=== PATIENT | male | born 1955 | race Caucasian/White ===

== ENCOUNTER 2019-01-15 11:19 | Inpatient (IN) ==
[2019-01-15] MEDS ORDERED: ACETAMINOPHEN 325 MG TABLET PO PRN (13:38)
[2019-01-15] MEDS ORDERED: PROMETHAZINE 25 MG/1 ML VIAL IM PRN (13:38)
[2019-01-15] MEDS ORDERED: ONDANSETRON 4 MG/2 ML VIAL IV PRN (13:38)
[2019-01-15 14:27] LABS: Basophils % 0.5 % (0.0-0.8); Hematocrit 38.5 VOL% (42.0-52.0); Immature Granulocytes % 0.2 %; Immature Granulocytes Absolute 0.02 #; Lymphocytes # 1.5 10*3/uL (1.4-4.0); Lymphocytes % 18.3 % (21.2-54.2); Mean Corpuscular HGB Conc 33.8 GM/DL (32-36); Mean Corpuscular Volume 92.8 FL (87-102); Mean Platelet Volume 9.5 FL (9.6-12.0); Monocytes % 7.4 % (1.7-12.7); Neutrophils % 73.6 % (38.7-73.9); Platelet Count 225 T/CUMM (130-400); Red Blood Count 4.15 MC/CUMM (3.8-5.5); Red Cell Distribution Width 12.1 % (9.3-17.3); White Blood Count 8.4 T/CUMM (4-12)
[2019-01-15] MEDS: PANTOPRAZOLE 40 MG TABLET PO SCH (14:31)
[2019-01-15] MEDS: HEPARIN 5,000 UNIT/1 ML VIAL SUBCUT SCH ×2 (14:31→20:55)
[2019-01-15 15:02] LABS: Albumin 3.7 G/DL (3.4-5.0); Bilirubin,Total 0.4 MG/DL (0.2-1.0); Calcium 8.5 MG/DL (8.5-10.1); Thyroid Stimulating Hormone 2.33 uIU/ml (0.358-3.74); Total Protein 7.9 G/DL (6.4-8.3)
[2019-01-15 15:45] LABS: Albumin 3.8 G/DL (3.4-5.0); Bilirubin,Total 0.4 MG/DL (0.2-1.0); Calcium 8.4 MG/DL (8.5-10.1); Osmolality,Calculated 294.8 MOS/KG (273-304); Total Protein 7.6 G/DL (6.4-8.3)
[2019-01-15 22:37] LABS: Apearance,Urine CLEAR (Clear); Bilirubin,Urine Negative (Negative); Blood, Urine Small mg/dL (Negative); Glucose,Urine (UA) Negative (Negative); Ketones,Urine Negative (Negative); Nitrite,Urine Negative (Negative); Protein,Urine Negative; RBC,Urine 1 /HPF (0-4); Urine Color Straw (Yellow); Urine Specific Gravity 1.006 (1.001-1.035); Urine Urobilinogen < 2.0 EU/DL (0.2-1.0); WBC,Urine 1 /HPF (0-6)
[2019-01-16] MEDS ORDERED: cefTRIAXone 1,000 MG in SYRINGE 1 EACH IV ONE ×2 (00:01→09:15)
[2019-01-16 05:56] LABS: Basophils % 0.5 % (0.0-0.8); Hematocrit 37.5 VOL% (42.0-52.0); Hemoglobin 12.4 GM/DL (14.0-18.0); Immature Granulocytes % 0.4 %; Immature Granulocytes Absolute 0.03 #; Lymphocytes # 1.4 10*3/uL (1.4-4.0); Lymphocytes % 18.5 % (21.2-54.2); Mean Corpuscular HGB Conc 33.1 GM/DL (32-36); Mean Corpuscular Volume 92.4 FL (87-102); Mean Platelet Volume 9.5 FL (9.6-12.0); Monocytes % 8.5 % (1.7-12.7); Neutrophils % 72.1 % (38.7-73.9); Platelet Count 195 T/CUMM (130-400); Red Blood Count 4.06 MC/CUMM (3.8-5.5); Red Cell Distribution Width 11.9 % (9.3-17.3); White Blood Count 7.5 T/CUMM (4-12)
[2019-01-16 06:06] LABS: Calcium 8.5 MG/DL (8.5-10.1)
[2019-01-16 06:28] LABS: Risk Ratio 5.08; VLDL CHOLESTEROL 33.6 MG/DL
[2019-01-16] MEDS ORDERED: SODIUM PHOSPHATE ENEMA 133 ML BOTTLE RECTAL ONE (06:55)
[2019-01-16] MEDS: SODIUM CHLORIDE 0.9% 1,000 ML IV SCH ×4 (07:08→22:47)
[2019-01-16 08:58] LABS: INR 0.9; PT Patient Result 10.2 SECS
[2019-01-16] MEDS: METOPROLOL TARTRATE 100 MG TABLET PO SCH ×2 (09:03→20:11)
[2019-01-16] MEDS ORDERED: SEVOFLURANE 1 UNIT/15 MINUTE INH ONE (13:17)
[2019-01-16] MEDS ORDERED: PROPOFOL 200 MG/20 ML VIAL IV ONE (13:17)
[2019-01-16] MEDS ORDERED: fentaNYL 100 MCG/2 ML VIAL ONE (13:17)
[2019-01-16] MEDS ORDERED: ONDANSETRON 4 MG/2 ML VIAL ONE (13:18)
[2019-01-16] MEDS ORDERED: MIDAZOLAM 2 MG/2 ML VIAL ONE (13:18)
[2019-01-16] MEDS ORDERED: hydrALAZINE 20 MG/1 ML VIAL IV ONE ×2 (13:20→13:55)
[2019-01-16] MEDS ORDERED: hydrALAZINE 20 MG/1 ML VIAL ONE (13:20)
[2019-01-16] MEDS ORDERED: hydrALAZINE 20 MG/1 ML VIAL IV STA (13:36)
[2019-01-16] MEDS: HEPARIN 5,000 UNIT/1 ML VIAL SUBCUT SCH ×2 (15:00→20:09)
[2019-01-16] MEDS: PANTOPRAZOLE 40 MG TABLET PO SCH (15:41)
[2019-01-16] MEDS: MORPHINE 4 MG/1 ML VIAL IV PRN (20:06)
[2019-01-17] MEDS: MORPHINE 4 MG/1 ML VIAL IV PRN ×3 (03:26→21:00)
[2019-01-17] MEDS: SODIUM CHLORIDE 0.9% 1,000 ML IV SCH ×4 (03:31→21:03)
[2019-01-17 06:43] LABS: Basophils % 0.3 % (0.0-0.8); Hematocrit 36.5 VOL% (42.0-52.0); Hemoglobin 12.2 GM/DL (14.0-18.0); Immature Granulocytes % 0.4 %; Immature Granulocytes Absolute 0.04 #; Lymphocytes # 1.5 10*3/uL (1.4-4.0); Lymphocytes % 16.2 % (21.2-54.2); Mean Corpuscular HGB Conc 33.4 GM/DL (32-36); Mean Corpuscular Volume 92.6 FL (87-102); Mean Platelet Volume 9.7 FL (9.6-12.0); Neutrophils % 75.1 % (38.7-73.9); Platelet Count 200 T/CUMM (130-400); Red Blood Count 3.94 MC/CUMM (3.8-5.5); White Blood Count 9.5 T/CUMM (4-12)
[2019-01-17 07:04] LABS: Calcium 8.3 MG/DL (8.5-10.1); Osmolality,Calculated 285.3 MOS/KG (273-304)
[2019-01-17] MEDS: cefTRIAXone 1,000 MG in SYRINGE 1 EACH IV SCH (08:55)
[2019-01-17] MEDS ORDERED: DIAZEPAM 5 MG TABLET PO ONE (08:56)
[2019-01-17] MEDS: METOPROLOL TARTRATE 100 MG TABLET PO SCH ×2 (08:56→21:02)
[2019-01-17] MEDS ORDERED: ONDANSETRON 4 MG/2 ML VIAL IV ONE (08:57)
[2019-01-17] MEDS ORDERED: fentaNYL 100 MCG/2 ML VIAL IV ONE (08:57)
[2019-01-17] MEDS ORDERED: MIDAZOLAM 2 MG/2 ML VIAL IV ONE (08:57)
[2019-01-17] MEDS: SODIUM CHLORIDE 0.45% 1,000 ML IV SCH (09:10)
[2019-01-17] MEDS ORDERED: fentaNYL 100 MCG/2 ML VIAL ONE (09:14)
[2019-01-17] MEDS ORDERED: MIDAZOLAM 2 MG/2 ML VIAL ONE (09:14)
[2019-01-17] MEDS: HEPARIN 5,000 UNIT/1 ML VIAL SUBCUT SCH ×2 (11:01→21:01)
[2019-01-17] MEDS: BICALUTAMIDE 50 MG TABLET PO SCH (13:15)
[2019-01-17] MEDS: PANTOPRAZOLE 40 MG TABLET PO SCH (13:15)
[2019-01-18 05:50] LABS: Basophils # 0.1 10*3/uL (0.0-0.2); Basophils % 0.6 % (0.0-0.8); Hematocrit 40.1 VOL% (42.0-52.0); Hemoglobin 13.5 GM/DL (14.0-18.0); Immature Granulocytes % 0.4 %; Immature Granulocytes Absolute 0.04 #; Mean Corpuscular HGB Conc 33.7 GM/DL (32-36); Mean Corpuscular Volume 93.3 FL (87-102); Monocytes % 9.5 % (1.7-12.7); Neutrophils % 67.5 % (38.7-73.9); Platelet Count 199 T/CUMM (130-400); Red Cell Distribution Width 12.2 % (9.3-17.3); White Blood Count 8.9 T/CUMM (4-12)
[2019-01-18 06:27] LABS: Calcium 8.6 MG/DL (8.5-10.1); Osmolality,Calculated 286.1 MOS/KG (273-304)
[2019-01-18] MEDS: SODIUM CHLORIDE 0.9% 1,000 ML IV SCH ×2 (07:43→12:16)
[2019-01-18] MEDS: SODIUM CHLORIDE 0.45% 1,000 ML IV SCH (08:10)
[2019-01-18] MEDS ORDERED: MAGNESIUM SULF RIDER 2 GM in PREMIX 1 EACH IV ONE (08:44)
[2019-01-18] MEDS: HEPARIN 5,000 UNIT/1 ML VIAL SUBCUT SCH (09:43)
[2019-01-18] MEDS: METOPROLOL TARTRATE 100 MG TABLET PO SCH (09:43)
[2019-01-18] MEDS: cefTRIAXone 1,000 MG in SYRINGE 1 EACH IV SCH (09:43)
[2019-01-18] MEDS: PANTOPRAZOLE 40 MG TABLET PO SCH (09:43)
[2019-01-18] MEDS: BICALUTAMIDE 50 MG TABLET PO SCH (09:43)
[2019-01-18 12:14] VITALS: BP 179/92
== END 2019-01-18 13:10 | disposition home or self-care (01) | DRG 824 ==
LOC: N.5E → SUATTDRO 12:56 → OBSVTOIN 12:56
PROVIDERS: ADMIT Internal Medicine; ATTEND Internal Medicine
PROC: IRBXLYN (2019-01-17 09:27)